=== PATIENT | male | born 1995 | race Caucasian/White ===

== ENCOUNTER 2023-09-07 11:00 | Emergency (ER) | payer OTHER ==
[2023-09-07 11:16] VITALS: BP 117/65; PULSE 102; RESP 16; TEMP 98.7; BMI 44.4
[2023-09-07] MEDS: IBUPROFEN 600 MG TABLET (FP) PO ONE (11:30)
[2023-09-07] MEDS ORDERED: IBUPROFEN 600 MG TABLET (FP) PO ONE (11:30)
== END 2023-09-07 12:50 | disposition home or self-care (01) ==
LOC: FER 11:00
DX: S93.402A Sprain of unspecified ligament of left ankle, initial encounter (principal); W10.8XXA Fall (on) (from) other stairs and steps, initial encounter; X50.1XXA Overexertion from prolonged static or awkward postures, initial encounter; Y99.0 Civilian activity done for income or pay
CPT/HCPCS: 73610-TC-LT-FY; 73630-TC-LT; 99283-25